=== PATIENT | female | born 1975 | race Two or more races ===

== ENCOUNTER 2021-09-15 09:12 | Emergency (ER) | payer OTHER ==
[~2021-09-15] VITALS: Ht 167.6 cm; Wt 56.7 kg
== END 2021-09-15 13:02 | disposition home or self-care (01) ==
LOC: ER 09:12
DX: M25.512 Pain in left shoulder (principal); Z91.013 Allergy to seafood

== ENCOUNTER → 2023-11-07 | Emergency (ER) | payer OTHER ==
[~2023-11-07] VITALS: Ht 165.1 cm; Wt 62.6 kg
== END | disposition home or self-care (01) ==
LOC: ER 06:54
DX: J02.8 Acute pharyngitis due to other specified organisms (principal); R22.1 Localized swelling, mass and lump, neck; Z91.013 Allergy to seafood

== ENCOUNTER 2025-03-21 09:15 | Emergency (ER) | payer OTHER ==
[~2025-03-21] VITALS: Ht 167.6 cm; Wt 54.0 kg
[2025-03-21] MEDS ORDERED: CEFTRIAXONE SODIUM 1,000 MG VIAL IM ONE (09:45)
[2025-03-21] MEDS ORDERED: CEFTRIAXONE SODIUM 1,000 MG VIAL ONE (10:29)
== END 2025-03-21 12:22 | disposition left against medical advice (07) ==
LOC: ER 09:15
DX: N76.0 Acute vaginitis (principal); L29.2 Pruritus vulvae; Z91.013 Allergy to seafood